=== PATIENT | male | born 1975 | race Caucasian/White ===

== ENCOUNTER 2022-06-07 16:10 | Emergency (ER) | payer OTHER ==
[~2022-06-07] VITALS: Ht 182.9 cm; Wt 88.5 kg
[2022-06-07] MEDS ORDERED: OMEPRAZOLE20 MG PO (16:33)
[2022-06-07] MEDS ORDERED: MEN UNDER 50 M1 EACH PO (16:33)
[2022-06-07] MEDS ORDERED: METOPROLOL SUCC50 MG PO (17:17)
--- NOTE | 2022-06-07 20:05 | EKG ---
[facility] [address] [facility] [place] [address] Signed Normal sinus rhythm Normal ECG No previous ECGs available Confirmed by Gely Saeed MD () on 06/07/2022 8:05:33 PM Electronically Signed By: GELY SAEED MD 06/07/222004 PATIENT NAME: DAKOTA BECERRA Electrocardiogram DATE OF : 71 PHYSICIAN: GELY SAEED MD REPORT #: [id number] REPORT IS CONFIDENTIAL AND NOT TO BE RELEASED WITHOUT AUTHORIZATION
== END 2022-06-07 17:38 | disposition home or self-care (01) ==
LOC: ED 16:10
DX: I48.0 Paroxysmal atrial fibrillation (principal); Z91.040 Latex allergy status; Z79.899 Other long term (current) drug therapy
CPT/HCPCS: 36415; 71045; 80053; 83735; 84443; 84484; 85025; 93005; 93010; 99285-25; A9270

== ENCOUNTER 2022-06-30 14:38 | Emergency (ER) | payer OTHER ==
[~2022-06-30] VITALS: Ht 182.9 cm; Wt 88.5 kg
[~2022-06-30 14:38] MED LIST: MEN UNDER 50 M1 EACH PO; METOPROLOL SUCC50 MG PO; OMEPRAZOLE20 MG PO
--- OUTSIDE RECORDS SUMMARY | 2022-06-30 14:44 | XMS ---
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 Cynthia VISIT COUNT (12 MO.) 2 [facility] TOTAL 2 NOTE: Visits indicate total known visits. 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
[2022-06-30 15:45] VITALS: BP 106/61
--- NOTE | 2022-06-30 19:56 | EKG ---
[facility] [address] [place] [address] Signed Normal sinus rhythm Normal ECG When compared with ECG of 07-JUN-2022 16:18, Questionable change in QRS axis Confirmed by DUSTIN AGUILAR MD ([id number]) on 06/30/2022 7:55:39 PM Electronically Signed By: DUSTIN AGUILAR MD 06/30/221955 PATIENT NAME: MARIAMDAKOTAAMOL CARBONE Electrocardiogram DATE OF : 71 PHYSICIAN: DUSTIN AGUILAR MD REPORT #: [id number] REPORT IS CONFIDENTIAL AND NOT TO BE RELEASED WITHOUT AUTHORIZATION
== END 2022-06-30 15:45 | disposition other institution, planned readmission (95) ==
LOC: ED 14:38
DX: Z53.21 Procedure and treatment not carried out due to patient leaving prior to being seen by health care provider (principal)
CPT/HCPCS: 36415; 71045; 80053; 83735; 84484; 85025; 93005; 93010